=== PATIENT | female | born 1995 | race Caucasian/White ===

== ENCOUNTER 2021-12-13 11:59 | Emergency (ER) | payer BC, SELFPAY ==
[2021-12-13 12:06] VITALS: BP 125/83; PULSE 70; RESP 16; TEMP 36.8; O2SAT 100
--- NOTE | 2021-12-13 12:20 | ED.FEMALEGU ---
HPI - Female Genitourinary General Chief complaint: Urogenital-Female Stated complaint: Uti Time Seen by Provider: 12/13/21 12:20 Source: patient, RN notes reviewed and old records reviewed Mode of arrival: ambulatory Limitations: no limitations History of Present Illness HPI Narrative: 26-year-old female with complaints of urinary frequency, urgency, and burning with urination and some suprapubic tenderness for the past 3 days.Patient denies any vaginal discharge or itching, states no concerns for STD exposure. Patient reports that she has had an urinary tract infection in the past but has not been in the past 6 months. Patient reports that she has not had any fevers, chills or sweats or any nausea or vomiting MD elicited complaint: UTI Onset (ago): day(s) (3) Location of symptoms: suprapubic (pressure) Severity scale (1-10): 2 Vaginal discharge: none Related Data Home Medications Medication Instructions Recorded Confirmed levonorgestrel 20 mcg/24 hours (7 1 device intrauterine ONCE 12/13/21 12/13/21 yrs) 52 mg intrauterine device (Mirena) Allergies Allergy/AdvReac Type Severity Reaction Status Date / Time No Known Allergies Allergy Verified 12/13/21 12:22 Review of Systems Review of Systems: CONSTITUTIONAL: Denies fever, chills, or sweats. EYES: Denies visual changes, redness, or discharge. ENT: Denies rhinorrhea, congestion, sore throat, or otalgia. CARDIOVASCULAR: Denies chest pain, palpitations, or edema. RESPIRATORY: Denies cough or dyspnea. GASTROINTESTINAL suprapubic pressure, no nausea, vomiting, or diarrhea. GENITOURINARY: Positive dysuria denies any visible hematuria. SKIN: Denies rash or itching. MUSCULOSKELETAL: Denies back pain, joint pain, or myalgia. NEUROLOGIC: Denies headache, numbness, or weakness. PSYCHIATRIC: Denies anxiety or depression. All systems reviewed & are unremarkable except as noted in HPI and below PMFSH Past Medical History Medical History (Updated 12/13/21 @ 13:42 by Andreina Smith NP) UTI (urinary tract infection) Surgical History Surgical History (Updated 12/13/21 @ 13:41 by Andreina Smith NP) History of spinal fusion for scoliosis Social History Social History (Updated 12/13/21 @ 13:41 by BEHZAD Baldwin Smoking status: Never smoker Alcohol intake: current Alcohol use details: social Substance use type: does not use Living arrangements: with family Gender identity (if verbalized by the patient): Female Comments At time of signature, agree with nursing past medical, surgical, social and family history. There is no relevant family history pertinent to the presenting complaint Exam Narrative: GENERAL: Well-appearing, well-nourished, and in no acute distress. HEAD: Normocephalic, atraumatic. EYES: PERRLA and EOMI. ENT: Nares clear, no rhinorrhea or epistaxis. Mucous membranes moist.TM's normal with good light reflex, throat pink with no lesions or any swelling. NECK: Supple. no lymphadenopathy CHEST: Clear to auscultation. No respiratory distress.SAO2 100% on room air HEART: Regular rate and rhythm. No murmur heard. Normal peripheral pulses. ABDOMEN: Soft, suprapubic pressure no McBurney point tenderness, nondistended, normal active bowel sounds.No CVA tenderness. EXTREMITIES: Normal range of motion. No edema. SKIN: Warm, dry, no rash. NEURO: No focal deficits. Alert and oriented x3. Course Course Level of Care: Express Care Visit Vital Signs Vital signs: Vital Signs Temperature 36.8 C 12/13/21 12:06 Pulse Rate 70 12/13/21 12:06 Respiratory Rate 16 12/13/21 12:06 Blood Pressure 125/83 12/13/21 12:06 Pulse Oximetry 100 12/13/21 12:06 Oxygen Delivery Room Air 12/13/21 12:06 Temperature 36.8 C 12/13/21 12:06 Pulse Rate 70 12/13/21 12:06 Respiratory Rate 16 12/13/21 12:06 Blood Pressure 125/83 12/13/21 12:06 Pulse Oximetry 100 12/13/21 12:06 Oxygen Delivery Room Air 12/13/21 12:
== END 2021-12-13 12:30 | disposition home or self-care (01) ==
PROVIDERS: Emergency Provider Registered Nurse
DX: N39.0 Urinary tract infection, site not specified (principal)
CPT/HCPCS: 81003; 87077; 87086; 87186; 99213; G0463